=== PATIENT | male | born 1995 | race Caucasian/White ===

== ENCOUNTER 2017-08-22 17:24 | Emergency (ER) | payer MEDICAID, OTHER ==
[~2017-08-22] VITALS: Ht 185.4 cm; Wt 67.0 kg
[~2017-08-22 17:24] MED LIST: LITH1TAB3 PO
[2017-08-22 17:54] VITALS: BP 133/76; PULSE 97; RESP 19; TEMP 97.6; O2SAT 100
[2017-08-22] MEDS ORDERED: DIVA250ER PO (17:55)
[2017-08-22] MEDS ORDERED: SERO25TA PO (17:55)
[2017-08-22] MEDS ORDERED: TRAZ100T6 PO (17:55)
[2017-08-22 18:22] LABS: BASOPHIL % 0.1 % (0.0-2.0); EOSINOPHIL % 0.1 % (0.0-4.0); HEMATOCRIT 45.9 % (39.0-51.0); HEMO FLAGS DIFF FINAL; LYMPH % 4.4 % (9.0-44.0); LYMPHOCYTE # 1.1 TH/MM3 (1.0-4.8); MEAN CELL VOLUME 88.8 FL (80.0-100.0); MEAN CORPUSCULAR HEMOGLOBIN 29.3 PG (27.0-34.0); MONO % 6.1 % (0.0-8.0); NEUT % 89.3 % (16.0-70.0); PLATELET COUNT 325 TH/MM3 (150-450); RED BLOOD COUNT 5.16 MIL/MM3 (4.50-5.90); RED CELL DISTRIBUTION WIDTH 12.7 % (11.6-17.2); WHITE BLOOD COUNT 24.7 TH/MM3 (4.0-11.0)
[2017-08-22 18:48] LABS: BLOOD, URINE SMALL (NEG); COMMENT (UR) CULT NOT INDICATED; CULTURE IF INDICATED CULT NOT INDICATED; GLUCOSE,URINE NEG (NEG); HYALINE CAST, URINE 44 /lpf (RARE); KETONE, URINE 80 mg/dL (NEG); MUCUS URINE MANY /lpf (OCC); NITRITE,URINE NEG (NEG); SQUAMOUS EPITHELIAL CELL URINE 1 /hpf (0-5); URINE COLOR YELLOW (YELLW/STRAW)
[2017-08-22 19:20] LABS: ANION GAP 9 MEQ/L (5-15); AST (GOT) 26 U/L (15-39); BLOOD UREA NITROGEN 27 MG/DL (7-18); CHLORIDE 107 MEQ/L (98-107); GLOMERULAR FILTRATION RATE 91 ML/MIN (>89); POTASSIUM 4.3 MEQ/L (3.5-5.1); SODIUM (NA) 139 MEQ/L (136-145)
[2017-08-22 19:21] LABS: ALCOHOL LESS THAN 3 MG/DL (0-5)
[2017-08-22 19:23] LABS: ALKALINE PHOSPHATASE 83 U/L (45-117); ALT (GPT) 27 U/L (9-52); TOTAL BILIRUBIN ADULT 0.9 MG/DL (0.2-1.0)
[2017-08-22 19:27] LABS: ACETAMINOPHEN LESS THAN 2.0 MCG/ML (10.0-30.0)
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
[2017-08-22 20:21] VITALS: PULSE 90; RESP 16; O2SAT 99
[2017-08-23 00:27] VITALS: BP 117/54; PULSE 91; RESP 18
== END 2017-08-23 02:19 ==
LOC: NEDAMB 17:24 → NEPJ 08-23 02:19
DX: R45.851 Suicidal ideations (principal); F31.9 Bipolar disorder, unspecified; F20.9 Schizophrenia, unspecified
CPT/HCPCS: 80053; 80307; 81001; 85025; 99284